=== PATIENT | female | born 1990 | race Caucasian/White ===

== ENCOUNTER → 2016-06-15 | Outpatient (CLI) | payer OTHER | END | disposition home or self-care (01) | LOC: C.PAPS 14:04 | PROVIDERS: ATTEND Obstetrics & Gynecology | DX: Z12.4 Encounter for screening for malignant neoplasm of cervix (principal); R87.616 Satisfactory cervical smear but lacking transformation zone ==

== ENCOUNTER 2022-02-01 07:30 | Inpatient (IN) ==
[2022-02-01] MEDS ORDERED: LACTATED RINGER'S 1,000 ML IV PRN (08:09)
[2022-02-01] MEDS ORDERED: OXYTOCIN 30 UNITS/500 ML BAG IV PRN ×2 (08:09)
[2022-02-01] MEDS ORDERED: LIDOCAINE 1% LOCAL 20 ML VIAL INFIL PRN (08:09)
[2022-02-01 08:35] LABS: Hematocrit (blood only) 37.1 % (34.1-44.9); Mean Corpuscular Hemoglobin 26.7 pg (25.0-34.0); Mean Corpuscular Hgb Conc 32.3 g/dL (32.0-36.0); Mean Corpuscular Volume 82.6 fL (80.0-100.0); Platelet Count 241 K/uL (130-400); RDW Coefficient of Variation 15.7 % (11.5-14.5); RDW Standard Deviation 46.9 fL (36.4-46.3); Red Blood Count 4.49 M/uL (3.93-5.22); White Blood Count 13.59 K/ul (4.8-10.8)
[2022-02-01] MEDS ORDERED: PENICILLIN G POTASSIUM 6 MU in DEXTROSE 5% 250 ML IV STA (08:50)
--- NOTE | 2022-02-01 08:50 | Labor Progress Brief Note ---
Date of Service February 01, 2022 Subjective who presents for planned IOL at 39w4d. This was scheduled due to concern for LGA, but EFW was 88% and AC 92% at 37w6d so not technically LGA, and in fact is elective induction. On arrival notes that panda was placed last night and fell out quite quickly after placement, before she left the hospital. No LOF, no VB, good FM, no Ctx this morning. Assessment & Plan (1) 39 weeks gestation of : Plan: IOL as planned. Pitocin to begin this morning, cervix favorable. Epidural on request. (2) GBS (group B Streptococcus carrier), +RV culture, currently : Plan: PCN Admission and Anticipated Discharge Date Admission Date: February 01, 2022 Physical Exam Genitourinary: FHT [address] irregular vs artifact Cvx 4/50/-2/soft/post Membranes intact Results & Data ([facility]) Vital Signs (Past 12 Hours) Vital Signs Temp Pulse Resp BP 02/01/22 08:14 98.2 F 20 02/01/22 08:09 109 H 131/77 Coding Level of Care Code None Diagnoses 39 weeks gestation of Z3A.39 GBS (group B Streptococcus carrier), +RV culture, currently O99.820
[2022-02-01] MEDS: PENICILLIN G POTASSIUM 3 MU in DEXTROSE 5% 100 ML IV PRN ×2 (13:22→18:20)
[2022-02-01] MEDS ORDERED: LIDOCAINE 2%/EPINEPHRINE 1:200,000 20 ML SDV ONE (14:04)
[2022-02-01] MEDS ORDERED: fentaNYL citrate 100 MCG/2 ML VIAL ONE (14:04)
[2022-02-01] MEDS ORDERED: ePHEDrine sulfate 50 MG/ML AMP ONE (14:04)
[2022-02-01] MEDS ORDERED: SODIUM CHLORIDE 0.9% INJ 10 ML VIAL ONE (14:04)
[2022-02-01] MEDS ORDERED: BUPIVACAINE 0.25% 30 ML VIAL ONE (14:04)
[2022-02-01] MEDS ORDERED: fentaNYL 2MCG/ML ROPIVACAINE 1.25MG/ML 100 ML BAG EPI ONE (14:05)
--- NOTE | 2022-02-01 15:09 | Anesthesiology Consultation ---
Date of Service February 01, 2022 Assessment & Plan Chart Review Chart Review: Acceptable Risk for Labor Epidural Consults Requested none History Height/Weight Height: 5 ft 7 in Weight: 108.862 kg Allergies Allergy/AdvReac Type Severity Reaction Status Date / Time No Known Allergies Allergy Verified 01/31/22 19:21 Medications Home Medications Medication Instructions Recorded Confirmed Last Taken vit 122-ferrous fumarate 1 tab PO DAILY #90 tabs 04/27/21 02/01/22 02/01/22 06:00 27 mg iron-folic acid 800 mcg tablet ( Multi) liothyronine 25 mcg tablet 25 mcg PO DAILY #90 tabs 10/26/21 02/01/22 02/01/22 06:00 escitalopram oxalate 5 mg tablet 5 mg PO DAILY 01/11/22 02/01/22 01/31/22 18:00 Active Medications Generic Name Dose Route Start Last Admin Trade Name Freq PRN Reason Stop Dose Admin Oxytocin 30 units in 500 mls @ 13 mls/hr 02/01/22 08:09 02/01/22 15:07 Pitocin IV 02/03/22 08:08 0.78 units/hr .Q24H PRN 13 mls/hr Labor Induction/Augmentation Titration Protocol 0.78 UNITS/HR Lactated Ringer's 1,000 mls @ 125 mls/hr 02/01/22 08:09 02/01/22 09:14 Lr IV 02/03/22 08:08 125 mls/hr .Q8H PRN Administration L&D Protocol Protocol Penicillin G Potassium 3 mu/ 106 mls @ 100 mls/hr 02/01/22 11:50 02/01/22 13:22 Dextrose IV 02/11/22 11:49 100 mls/hr Q4H PRN Administration GBS(+) Until Delivery Past Medical History Medical History (Updated 01/31/22 @ 19:43 by Maria Guadalupe Cuevas MD, FACOG) Anxiety BMI 31.0-31.9,adult Depression Takes Lexapro Excessive sleepiness Plantar fasciitis Snoring Varicella vaccination Past Family History Family History Grandfather (Paternal) Diabetes Myocardial infarction Grandfather (Maternal) Prostate cancer Denies family history of Ovarian cancer Breast cancer Colorectal cancer Past Surgical History Surgical History S/P tonsillectomy Social History Smoking Status: Never smoker Hx Alcohol Use: No Hx Substance Use: No substance use type: does not use Physical Exam Vital Signs Last Vital Signs Temp 36.5 C 02/01/22 13:54 Pulse 100 H 02/01/22 15:07 Resp 20 02/01/22 13:54 BP 126/63 02/01/22 15:09 Pulse Ox 96 02/01/22 15:06 Testing Laboratory Results 02/01/22 08:22 Blood Type A Positive 02/01/22 08:22 Antibody Screen NEGATIVE 02/01/22 08:22
[2022-02-01] MEDS ORDERED: fentaNYL 2MCG/ML ROPIVACAINE 1.25MG/ML 100 ML BAG EPI PRN (15:10)
[2022-02-01] MEDS ORDERED: diphenhydrAMINE 50 MG/ML VIAL IV PRN (15:10)
[2022-02-01] MEDS ORDERED: NALOXONE HCL 0.4 MG/1 ML VIAL/CARP IV PRN (15:10)
[2022-02-01] MEDS ORDERED: ePHEDrine sulfate 50 MG/ML AMP IV PRN (15:10)
[2022-02-01] MEDS ORDERED: NALBUPHINE HCL INJ 10 MG/ML AMP IV PRN (15:10)
[2022-02-01] MEDS ORDERED: NALOXONE HCL 1 MG in SODIUM CHLORIDE 0.9% 1000ML 1,000 ML IV PRN (15:10)
[2022-02-01] MEDS ORDERED: ACETAMINOPHEN 325 MG TAB PO PRN (20:53)
[2022-02-01] MEDS ORDERED: HYDROCORTISONE ACETATE 25 MG SUPP PR PRN (20:53)
[2022-02-01] MEDS ORDERED: DIPHTHERIA/TETANUS/PERTUSSIS 0.5 ML SYR/VIAL IM ONE (20:53)
[2022-02-01] MEDS ORDERED: BENZOCAINE 20% AER SPR 82.5 GM CAN EXT PRN (20:53)
[2022-02-01] MEDS ORDERED: oxyCODONE/ACETAMINOPHEN 5mg/325mg TAB PO PRN (20:53)
[2022-02-01] MEDS: IBUPROFEN 600 MG TAB PO PRN (21:40)
[2022-02-01] MEDS: DOCUSATE SODIUM 100 MG CAP PO SCH (21:40)
[2022-02-02] MEDS: IBUPROFEN 600 MG TAB PO PRN ×4 (03:48→20:33)
--- NOTE | 2022-02-02 05:34 | Obstetrical Progress Note ---
Date of Service <Tiffanie SimpsonDO - Last Filed: 02/02/22 06:13> February 02, 2022 Assessment & Plan <Tiffanie SimpsonDO - Last Filed: 02/02/22 06:13> (1) Status post vaginal delivery: continue OOB, ambulation, diet as tolerated (2) Hypothyroid in , antepartum: Continue liothyronine 20 mcg daily (3) Depression: Continue escitalopram 5mg daily <Rayne Bronson MD - Last Filed: 02/02/22 07:04> (1) Status post vaginal delivery: (2) Hypothyroid in , antepartum: (3) Depression: Subjective <Tiffanietrell SimpsonDO - Last Filed: 02/02/22 06:13> Bhumi is a 31 y/o female who is now PPD # 1 following spontaneous vaginal delivery at 39 4/7 weeks. Reports feeling well overall this morning. Mild abdominal cramping pain well managed on analgesics. Voiding. Tolerating meals overnight. Minimal ambulation os far. Some persistent lochia with some improvement this morning. Breast/Bottle feeding. Review of Systems Denies fever, chills, sweats Denies shortness of breath, difficulty breathing, chest pain, palpitations, chest pressure. Denies breast pain. Denies dysuria. Denies headache or changes in vision. Physical Exam <Tiffanie SimpsonDO - Last Filed: 02/02/22 06:13> General: Alert, oriented. No acute distress. Cardiac: Regular rate and rhythm, no murmurs/rubs/gallops. Respiratory: Clear to auscultation bilaterally a/p, no wheezes/rales/rhonchi. No increased work of breathing. Symmetrical chest rise. No respiratory distress. Abdomen: Soft, nontender, nondistended. Uterus: Uterine fundus firm, palpable 1 cm below umbilicus. Lower Extremities: No lower extremity edema or swelling. No deep calf pain. Grace's negative bilaterally. Results & Data ([facility]) <Tiffanie SimpsonDO - Last Filed: 02/02/22 06:13> Vital Signs (Past 12 Hours) Vital Signs Temp Pulse Pulse Resp BP BP Pulse Ox 02/02/22 00:00 36.8 C 119 H 20 109/74 96 10/18/22 22:20 18 02/01/22 21:20 18 02/01/22 20:35 37.0 C 18 02/01/22 20:20 18 02/01/22 22:24 126 H 134/74 02/01/22 22:09 127 H 129/73 02/01/22 21:54 125 H 124/75 02/01/22 21:39 125 H 147/72 H 02/01/22 21:24 139 H 158/76 H 02/01/22 21:10 134 H 167/76 H 02/01/22 20:54 131 H 145/69 H 02/01/22 20:39 114 H 140/70 02/01/22 20:24 111 H 135/72 02/01/22 20:11 116 H 98 02/01/22 20:10 121 H 175/91 H 02/01/22 20:06 134 H 99 02/01/22 20:02 123 H 86 L 02/01/22 20:00 18 02/01/22 20:00 18 02/01/22 20:01 109 H 98 02/01/22 19:56 114 H 99 02/01/22 19:51 118 H 83 L 02/01/22 19:30 18 02/01/22 19:30 36.6 C 18 02/01/22 19:46 106 H 100 18 19:41 109 H 100 02/01/22 19:36 116 H 99 02/01/22 19:31 112 H 100 02/01/22 19:26 109 H 140/81 100 18 19:21 110 H 100 18 19:16 111 H 100 22 19:11 104 H 100 22 19:10 105 H 140/77 02/01/22 19:06 100 H 100 18 19:01 108 H 99 22 18:56 95 H 100 1822 18:55 97 H 136/79 22 18:51 97 H 98 22 18:46 105 H 97 1822 18:41 98 18/22 18:41 97 H 1822 18:41 97 H 137/77 22 18:36 94 H 99 02/01/22 18:31 94 H 98 02/01/22 18:26 96 H 98 02/01/22 18:25 93 H 131/76 02/01/22 18:21 90 97 02/01/22 18:16 93 H 99 02/01/22 18:11 99 02/01/22 18:11 93 H 02/01/22 18:11 93 H 133/78 02/01/22 18:00 20 02/01/22 18:00 20 02/01/22 18:06 93 H 97 02/01/22 18:01 96 H 97 02/01/22 17:56 98 H 97 02/01/22 17:55 103 H 128/80 02/01/22 17:51 101 H 96 02/01/22 17:46 102 H 97 02/01/22 17:41 97 H 125/73 99 02/01/22 17:36 99 H 97 O2 Del Method 02/02/22 00:00 Room Air 02/01/22 22:20 02/01/22 21:20 02/01/22 20:35 02/01/22 20:20 02/01/22 22:24 02/01/22 22:09 02/01/22 21:54 02/01/22 21:39 02/01/22 21:24 02/01/22 21:10 02/01/22 20:54 02/01/22 20:39 02/01/22 20:24 02/01/22 20:11 02/01/22 20:10 02/01/22 20:06 02/01/22 20:02 02/01/22 20:00 02/01/22 20:00 02/01/22 20:01 02/01/22 19:56 02/01/22 19:51 02/01/22 19:30 02/01/22 19:30 02/01/22 19:46 02/01/22 19:41 02/01/22 19:36 02/01/22 19:31 02/01/22 19:26 02/01/22 19:21 02/01/22 19:16 02/01/22 19:11 02/01/22 19:10 02/01/22 19:06 02/01/22 19:01 02/01/22 18:56 02/01/22 18:55 10/18/22 18:51 02/01/22 18:46 02/01/22 18:41 02/01/22 18:41 02/01/22 18:41 02/01/22 18:36 02/01/22 18:31 02/01/22 18:26 02/01/22 18:25 02/01/22 18:21 02/01/22 18:16 02/01/22 18:11 02/01/22 18:11 02/01/22 18:11 02/01/22 18:00 02/01/22 18:00 02/01/22 18:06 02/01/22 18:01 02/01/22 17:56 02/01/22 17:55 02/01/22 17:51 02/01/22 17:46 02/01/22 17:41 02/01/22 17:36 <Rayne Bronson MD - Last Filed: 02/02/22 07:04> Co-Signing Physician Notes Resident Physician Supervision Note: I interviewed and examined the patient. Discussed with Dr. Simpson and agree with findings and plan as documented in the note. Any exceptions or clarifications are listed here: [ ] Documented By: Rayne Bronson MD, FACOG Resident Activity Tracking <Tiffanie Simpson DO - Last Filed: 02/02/22 06:13> Resident Involvement: Resident Care Provided Care Provided: OB Delivery (Post )
[2022-02-02 06:48] LABS: Hematocrit (blood only) 31.5 % (34.1-44.9); Hemoglobin 10.3 g/dl (12.0-16.0); Mean Corpuscular Hgb Conc 32.7 g/dL (32.0-36.0); Mean Corpuscular Volume 82.5 fL (80.0-100.0); Mean Platelet Volume 10.5 fL (9.4-12.3); Platelet Count 220 K/uL (130-400); RDW Coefficient of Variation 15.8 % (11.5-14.5); RDW Standard Deviation 47.2 fL (36.4-46.3); Red Blood Count 3.82 M/uL (3.93-5.22); White Blood Count 17.92 K/ul (4.8-10.8)
[2022-02-02] MEDS ORDERED: Nursing to Pharmacy Communication SCH (07:00)
[2022-02-02] MEDS ORDERED: PRENATAL VITAMIN 1 TAB PO SCH (08:00)
[2022-02-02] MEDS ORDERED: ESCITALOPRAM OXALATE 10 MG TAB PO SCH ×2 (09:00→21:30)
[2022-02-02] MEDS ORDERED: LIOTHYRONINE SODIUM 25 MCG TAB PO SCH (09:00)
[2022-02-02] MEDS: PRENATAL VITAMIN 1 TAB PO SCH (09:24)
[2022-02-02] MEDS: DOCUSATE SODIUM 100 MG CAP PO SCH ×2 (09:24→20:33)
[2022-02-03] MEDS: IBUPROFEN 600 MG TAB PO PRN ×3 (00:51→10:17)
--- NOTE | 2022-02-03 06:04 | Obstetrical Progress Note ---
Date of Service <Tiffanie SimpsonDO - Last Filed: 02/03/22 07:01> February 03, 2022 Assessment & Plan <Tiffanie SimpsonDO - Last Filed: 02/03/22 07:01> (1) Status post vaginal delivery: continue OOB, ambulation, diet as tolerated (2) Hypothyroid in , antepartum: Continue liothyronine 20 mcg daily (3) Depression: Continue escitalopram 5mg daily <Brittany Pearce MD, FACOG - Last Filed: 02/03/22 07:15> (1) Status post vaginal delivery: (2) Hypothyroid in , antepartum: (3) Depression: Subjective <Tiffanietrell SimpsonDO - Last Filed: 02/03/22 07:01> Bhumi is a 31 y/o female who is now PPD # 2 following spontaneous vaginal delivery at 39 4/7 weeks. Reports feeling well overall this morning. Mild abdominal cramping pain well managed on analgesics. Voiding. Tolerating meals overnight. Able to ambulate. Some persistent lochia with some improvement this morning. Bottle feeding and pumping. Review of Systems Denies fever, chills, sweats Denies shortness of breath, difficulty breathing, chest pain, palpitations, chest pressure. Denies breast pain. Denies dysuria. Denies headache or changes in vision. Physical Exam <Tiffanie SimpsonDO - Last Filed: 02/03/22 07:01> General: Alert, oriented. No acute distress. Cardiac: Regular rate and rhythm, no murmurs/rubs/gallops. Respiratory: Clear to auscultation bilaterally a/p, no wheezes/rales/rhonchi. No increased work of breathing. Symmetrical chest rise. No respiratory distress. Abdomen: Soft, nontender, nondistended. Uterus: Uterine fundus firm, palpable 1 cm below umbilicus. Lower Extremities: No lower extremity edema or swelling. No deep calf pain. Grace's negative bilaterally. Results & Data ([facility]) <Tiffanie SimpsonDO - Last Filed: 02/03/22 07:01> Vital Signs (Past 12 Hours) Vital Signs Temp Pulse Resp BP 02/03/22 00:50 36.5 C 87 18 123/84 02/02/22 20:30 36.6 C 101 H 18 134/79 <Brittany Pearce MD, FACOG - Last Filed: 02/03/22 07:15> Co-Signing Physician Notes Resident Physician Supervision Note: I interviewed and examined the patient. Discussed with Dr. Simpson and agree with findings and plan as documented in the note. Any exceptions or clarifications are listed here: Doing well. Routine care. Plan d/c. Instructions given. Documented By: Brittany Pearce MD, FACOG Resident Activity Tracking <Tiffanie Simpson, DO - Last Filed: 02/03/22 07:01> Resident Involvement: Resident Care Provided Care Provided: OB Delivery (Post )
[2022-02-03] MEDS ORDERED: LIOTHYRONINE SODIUM 25 MCG TAB PO SCH (06:30)
[2022-02-03 06:55] LABS: Hematocrit (blood only) 30.7 % (34.1-44.9); Hemoglobin 9.8 g/dl (12.0-16.0)
[2022-02-03] MEDS: DOCUSATE SODIUM 100 MG CAP PO SCH (08:11)
[2022-02-03] MEDS: PRENATAL VITAMIN 1 TAB PO SCH (08:11)
== END 2022-02-03 12:18 | disposition home or self-care (01) | DRG 807 ==
LOC: 4S1 07:30 → 4E2 23:00
DX: E03.9 Hypothyroidism, unspecified; Z3A.39 39 weeks gestation of pregnancy; O99.284 Endocrine, nutritional and metabolic diseases complicating childbirth; O99.344 Other mental disorders complicating childbirth; O70.1 Second degree perineal laceration during delivery; O99.824 Streptococcus B carrier state complicating childbirth; F32.A Depression, unspecified; Z37.0 Single live birth